=== PATIENT | male | born 1960 | race Caucasian/White ===

== ENCOUNTER 2020-04-26 10:31 | Emergency (ER) | payer SELFPAY ==
[~2020-04-26] VITALS: Ht 177.8 cm; Wt 95.4 kg
[2020-04-26] MEDS ORDERED: ORPH-16 PO (11:08)
[2020-04-26] MEDS ORDERED: HYDR-3165 PO (11:08)
[2020-04-26] MEDS ORDERED: PRED20TA PO (11:08)
--- NOTE | 2020-04-26 11:08 | PHYS DOC ---
Past History Past Medical History: High Cholesterol, Heart Disease, Hypertension Additional Smoking Information: smokes 1/2 ppd Alcohol Use: None General Adult EDM: Chief Complaint: LOWEREXTREMITY INJURY HPI: HPI: Patient is a [age] year old [sex] who presents with [] Review of Systems: Review of Systems: Constitutional: Denies fever or chills Eyes: Denies change in visual acuity HENT: Denies nasal congestion or sore throat Respiratory: Denies cough or shortness of breath Cardiovascular: Denies chest pain or edema GI: Denies abdominal pain, nausea, vomiting, bloody stools or diarrhea : Denies dysuria Musculoskeletal: Denies back pain or joint pain Integument: Denies rash Neurologic: Denies headache, focal weakness or sensory changes Endocrine: Denies polyuria or polydipsia Lymphatic: Denies swollen glands Psychiatric: Denies depression or anxiety Heart Score: Risk Factors: Risk Factors: DM, Current or recent (<one month) smoker, HTN, HLP, family history of CAD, obesity. Risk Scores: Score 0 - 3: 2.5% MACE over next 6 weeks - Discharge Home Score 4 - 6: 20.3% MACE over next 6 weeks - Admit for Clinical Observation Score 7 - 10: 72.7% MACE over next 6 weeks - Early Invasive Strategies Allergies: Allergies: Allergies Coded Allergies Type Severity Reaction Last Updated Verified No Known Drug Allergies 04/26/20 No Physical Exam: PE: Constitutional: Well developed, well nourished, no acute distress, non-toxic appearance. [] HENT: Normocephalic, atraumatic, bilateral external ears normal, oropharynx moist, no oral exudates, nose normal. [] Eyes: PERRLA, EOMI, conjunctiva normal, no discharge. [] Neck: Normal range of motion, no tenderness, supple, no stridor. [] Cardiovascular:Heart rate regular rhythm, no murmur [] Lungs & Thorax: Bilateral breath sounds clear to auscultation [] Abdomen: Bowel sounds normal, soft, no tenderness, no masses, no pulsatile masses. [] Skin: Warm, dry, no erythema, no rash. [] Back: No tenderness, no CVA tenderness. [] Extremities: No tenderness, no cyanosis, no clubbing, ROM intact, no edema. [] Neurologic: Alert and oriented X 3, normal motor function, normal sensory function, no focal deficits noted. [] Psychologic: Affect normal, judgement normal, mood normal. [] Current Patient Data: Vital Signs: Vital Signs Date Time Temp Pulse Resp B/P (MAP) Pulse Ox O2 Delivery O2 Flow Rate FiO2 04/26/20 10:36 98.2 64 20 153/87 (109) 97 Room Air EKG: EKG: [] Radiology/Procedures: Radiology/Procedures: [] Course & Med Decision Making: Course & Med Decision Making Pertinent Labs and Imaging studies reviewed. (See chart for details) [] Dragon Disclaimer: [employer] Disclaimer: This electronic medical record was generated, in whole or in part, using a voice recognition dictation system. Departure Departure: Impression: Primary Impression: Back pain Qualified Codes: M54.42 - Lumbago with sciatica, left side Additional Impression: Sciatica of left side Disposition: HOME/RESIDENCE PRIOR TO ADM Condition: STABLE Referrals: PCP,NO (PCP) Patient Instructions: Back Pain, Adult, [id number], Sciatica with Rehab- [facility] Additional Instructions: ICE area 20 min on then leave off next 20 min. Repeat several times daily as needed for next few days. Take over the counter Ibuprofen 600mg (three over the counter tabs) three times daily as needed for pain in addition to prescribed medications. Call Dr. Irwin Guzman (Pain medicine) for further evaluation and treatment:call [phone]. Scripts Lidocaine (Lidocaine PATCH ) 1 Each Adh..patch 1 EACH TP DAILY for FOR LOCAL PAIN, #10 PATCH REMOVE AFTER 12 HOURS AND LEAVE OFF NEXT 12 HOURS BEFORE REPLACEMENT OF NEW PATCH Prov: ALEX HICKS DO 04/26/20 Orphenadrine Citrate (ORPHENADRINE CITRATE) 100 Mg Tablet.er 1 TAB PO BID PRN for MUSCLE PAIN, #14 TAB 0 Refills Prov: ALEX HICKS DO 04/26/20 Prednisone (PREDNISONE) 20 Mg Tablet 2 TAB PO DAILY for Back pain, #8 TAB Start this medication tomorrow, Sunday04/27/20 Prov: ALEX HICKS DO 04/26/20 Hydrocodone Bit/Acetaminophen (NORCO 5-325 TABLET) 1 Each Tablet 0.5-1 TAB PO Q6HRS PRN for PAIN, #14 TAB Prov: ALEX HICKS DO 04/26/20 Justification of Admission: Justification of Admission: Justification of Admission Dx: N/A ALEX HICKS DO Apr 26, 2020 11:08
[2020-04-26] MEDS ORDERED: LIDO700A21 TP (11:12)
[2020-04-26] MEDS ORDERED: KETOROLAC 30 MG/ML VIAL. IM ONE (11:15)
[2020-04-26] MEDS ORDERED: HYDROcodone/APAP 5/325MG 1 TAB TABLET PO ONE (11:15)
[2020-04-26] MEDS ORDERED: LIDOCAINE (700MG/PATCH) PATCH. TD ONE (11:15)
[2020-04-26] MEDS ORDERED: DEXAMETHASONE 4 MG TABLET PO ONE (11:15)
[2020-04-26] MEDS ORDERED: ORPHENADRINE CITRATE 60 MG/2 ML VIAL. IM ONE (11:15)
[2020-04-26 17:41] VITALS: BP 122/70
== END 2020-04-26 12:10 | disposition home or self-care (01) ==
LOC: ER 10:31
DX: M54.42 Lumbago with sciatica, left side (principal); M79.605 Pain in left leg; E78.00 Pure hypercholesterolemia, unspecified; I11.0 Hypertensive heart disease with heart failure; F17.200 Nicotine dependence, unspecified, uncomplicated
CPT/HCPCS: 96372; 99284; J1885; J8540